=== PATIENT | female | born 1995 | race Caucasian/White ===

== ENCOUNTER → 2017-10-25 | Emergency (ER) | payer OTHER ==
[~2017-10-25] VITALS: Ht 162.6 cm; Wt 52.6 kg
== END | disposition home or self-care (01) ==
LOC: ER 23:10
DX: O20.8 Other hemorrhage in early pregnancy (principal); Z34.01 Encounter for supervision of normal first pregnancy, first trimester

== ENCOUNTER 2018-05-18 14:45 | Inpatient (IN) | payer OTHER ==
[~2018-05-18] VITALS: Ht 162.6 cm; Wt 66.2 kg
[2018-05-26] MEDS ORDERED: ALDOMET250 MG PO (20:53)
[2018-05-26] MEDS ORDERED: PRENATAL TABLE1 EAC1 PO (20:54)
[2018-05-27] MEDS ORDERED: PRENATAL FORMU1 EAC1 PO (08:40)
== END 2018-05-30 14:27 | disposition home or self-care (01) | DRG 775 ==
LOC: LDR 14:45 → OB/GYN 05-26 17:54 → LDR 05-26 17:54 → OB/GYN 05-27 16:36
PROC: 10E0XZZ Delivery of Products of Conception, External Approach (ICD-10-PCS; principal; 2018-05-26)
PROC: 4A1HXCZ Monitoring of Products of Conception, Cardiac Rate, External Approach (ICD-10-PCS; 2018-05-26)
PROC: 0UQGXZZ Repair Vagina, External Approach (ICD-10-PCS; 2018-05-26)
DX: O71.4 Obstetric high vaginal laceration alone (principal); O42.02 Full-term premature rupture of membranes, onset of labor within 24 hours of rupture; Z3A.40 40 weeks gestation of pregnancy; Z37.0 Single live birth